=== PATIENT | female | born 1995 | race Caucasian/White ===

== ENCOUNTER 2018-04-19 22:24 | Emergency (ER) | payer BC ==
--- NOTE | 2018-04-19 23:22 | EDM.PDOC ---
ED HPI GENERAL MEDICAL PROBLEM - General Chief Complaint: Laceration Stated Complaint: LACERATION RING FINGER/LT HAND Time Seen by Provider: 04/19/18 22:27 - History of Present Illness INITIAL COMMENTS - FREE TEXT/NARRATIVE: HISTORY AND PHYSICAL: History of present illness: 22-year-old female presenting emergency department with chief complaint of trauma to her left ring finger. Patient states that the wind blew a door onto her left ring finger causing a laceration to the tip. She felt immediate pain and there was bleeding. She denies any decreased sensation, range of motion, or strength. No other injuries were noted. No loss of consciousness. Initial exam shows neurovascular intact. There is a Review of systems: As per history of present illness and below otherwise all systems reviewed and negative. Past medical history: As per history of present illness and as reviewed below otherwise noncontributory. Surgical history: As per history of present illness and as reviewed below otherwise noncontributory. Social history: No reported history of drug or alcohol abuse. Family history: As per history of present illness and as reviewed below otherwise noncontributory. Physical exam: HEENT: Atraumatic, normocephalic, pupils reactive, negative for conjunctival pallor or scleral icterus, mucous membranes moist, throat clear, neck supple, nontender, trachea midline. Lungs: Clear to auscultation, breath sounds equal bilaterally, chest nontender. Heart: S1S2, regular, negative for clicks, rubs, or JVD. Abdomen: Soft, nondistended, nontender. Negative for masses or hepatosplenomegaly. Negative for costovertebral tenderness. Pelvis: Stable nontender. Genitourinary: Deferred. Rectal: Deferred. Extremities: Atraumatic, negative for cords or calf pain. Neurovascular unremarkable. Neuro: Awake, alert, oriented. Cranial nerves II through XII unremarkable. Cerebellum unremarkable. Motor and sensory unremarkable throughout. Exam nonfocal. Diagnostics: [] Therapeutics: 1% lidocaine 5 mL, 2 Ethilon 5-0 suture Impression: Laceration left ring finger Plan: X-ray revealed no significant bony abnormalities or fractures. Using 5 mL of 1% lidocaine digital block was achieved on the left ring finger. Under normal sterile procedure to Ethilon 50 sutures were placed one vertical mattress and one regular interrupted. Patient was discharged in good condition with instruction to follow-up in 7 days for suture removal. She should watch for signs of infection including but not limited to increased pain, swelling, redness, and purulent drainage. She should return to emergency department if she has any new or worsening symptoms. I did give the patient a prescription for Bactrim secondary to dirty wound. Patient did have a recent tetanus so did not need updating. Definitive disposition and diagnosis as appropriate pending reevaluation and review of above. left ring finger Pain Score (Numeric/FACES): 8 - Related Data Allergies Allergy/AdvReac Type Severity Reaction Status Date / Time No Known Allergies Allergy Verified 04/19/18 23:08 Home Meds: Home Meds . 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 Hematologic History: Reports: None Oncologic (Cancer) History: Reports: None Dermatologic History: Reports: None - Infectious Disease History Infectious Disease History: Reports: None - Past Surgical History GI Surgical History: Reports: Other (See Below) Other GI Surgeries/Procedures: spleen removed per patient Female Surgical History: Reports: None Social & Family History - Family History Family Medical History: Noncontributory - Tobacco Use Smoking Status *Q: Never Smoker - Recreational Drug Use Recreational Drug Use: No ED ROS GENERAL - Review of Systems Review Of Systems: ROS reveals no pertinent complaints other than HPI. ED EXAM, SKIN/RASH Exam: See Below Course - Vital Signs Last Recorded V/S: Last Vital Signs Temp 97.4 F 04/19/18 23:09 Pulse 86 04/19/18 23:09 Resp 14 04/19/18 23:09 BP 96/56 L 04/19/18 23:09 Pulse Ox 98 04/19/18 23:09 - Orders/Labs/Meds Orders: Active Orders 24 hr Category Date Time Status Fingers Fourth Digit Lt F3 [CR] Stat Exams 04/19/18 23:20 Taken Meds: Medications Discontinued Medications Generic Name Dose Route Start Last Admin Trade Name Freq PRN Reason Stop Dose Admin Lidocaine HCl Confirm 04/20/18 00:44 Xylocaine-Mpf 1% Administered 04/20/18 00:45 Dose 5 mls @ as directed .ROUTE .STK-MED ONE Ketorolac Tromethamine 60 mg 04/20/18 00:13 04/20/18 00:20 Toradol IM 04/20/18 00:14 60 mg ONETIME ONE Administration Lidocaine HCl 5 ml 04/20/18 00:12 04/20/18 00:20 Xylocaine-Mpf 1% INJECT 04/20/18 00:13 5 ml ONETIME ONE Administration Departure - Departure Time of Disposition: 00:53 Disposition: Home, Self-Care 01 Condition: Good Clinical Impression: Laceration of finger of left hand Qualifiers: Encounter type: initial encounter Finger: ring finger Damage to nail status: without damage Foreign body presence: without foreign body Qualified Code(s): S61.215A - Laceration without foreign body of left ring finger without damage to nail, initial encounter - Discharge Information Referrals: PCP,None [Primary Care Provider] - Forms: ED Department Discharge Additional Instructions: My general discharge The following information is given to patients seen in the emergency department who are being discharged to home. This information is to outline your options for follow-up care. We provide all patients seen in our emergency department with a follow-up referral. The need for follow-up, as well as the timing and circumstances, are variable depending upon the specifics of your emergency department visit. If you don't have a primary care physician on staff, we will provide you with a referral. We always advise you to contact your personal physician following an emergency department visit to inform them of the circumstance of the visit and for follow-up with them and/or the need for any referrals to a consulting specialist. The emergency department will also refer you to a specialist when appropriate. This referral assures that you have the opportunity for follow-up care with a specialist. All of these measure are taken in an effort to provide you with optimal care, which includes your follow-up. Under all circumstances we always encourage you to contact your private physician who remains a resource for coordinating your care. When calling for follow-up care, please make the office aware that this follow-up is from your recent emergency room visit. If for any reason you are refused follow-up, please contact the [facility] Emergency Department at and asked to speak to the emergency department charge nurse. [facility] [address] [place] [id number] May use Tylenol and Motrin for pain and inflammation Take antibiotics as prescribed. Return to emergency department if any new or worsening symptoms Return for suture removal in 7 days. - My Orders Last 24 Hours: My Active Orders 04/19/18 23:20 Fingers Fourth Digit Lt F3 [CR] Stat - Assessment/Plan Last 24 Hours: My Active Orders 04/19/18 23:20 Fingers Fourth Digit Lt F3 [CR] Stat
[2018-04-20] MEDS ORDERED: Ketorolac 60 MG/2 ML SDV IM ONE (00:13)
[2018-04-20] MEDS ORDERED: Bacitracin Oint 1 GM U/D Packet TOP ONE (00:51)
--- NOTE | 2018-04-20 11:21 | CR ---
EXAM DATE: 04/19/18 PATIENT'S AGE: 22 Patient: DOM WINTER Facility: [place], [place] Site . Site : 1995 Study: XRay Extremity Left 4th digit [id number]/4/2018 11:42:14 PM Ordering Physician: Soy Morales Final Report: INDICATION: Crush injury TECHNIQUE: Three views 4th digit left hand COMPARISON: None FINDINGS: Bones: Alignment is normal. No fractures or bone lesions. Joint spaces: Unremarkable. Soft tissues: Unremarkable. IMPRESSION: Negative. Dictated by Ander Hewitt MD @ 04/20/2018 12:06:14 AM Dictated by: Ander Hewitt MD @ 04/20/2018 00:06:55 (Electronic Signature) Report Signed by Proxy. [facility]
== END 2018-04-20 01:05 | disposition home or self-care (01) ==
LOC: MW.ED 22:24
DX: S61.215A Laceration without foreign body of left ring finger without damage to nail, initial encounter (principal); W22.8XXA Striking against or struck by other objects, initial encounter
CPT/HCPCS: 12001; 73140; 96372; 99283; J1885

== ENCOUNTER 2018-04-26 15:09 | Emergency (ER) | payer BC | END 2018-04-26 15:38 | disposition left against medical advice (07) | LOC: MW.ED 15:09 | DX: Z53.21 Procedure and treatment not carried out due to patient leaving prior to being seen by health care provider (principal) ==

== ENCOUNTER 2025-07-29 21:34 | Emergency (ER) | payer OTHER | END 2025-07-29 22:00 | LOC: MW.ED 21:34 | DX: Z02.89 Encounter for other administrative examinations (principal); Z76.0 Encounter for issue of repeat prescription; J45.909 Unspecified asthma, uncomplicated | CPT/HCPCS: 99283 ==

== ENCOUNTER 2025-09-07 22:41 | Emergency (ER) | payer SELFPAY | END 2025-09-07 23:14 | LOC: MW.ED 22:41 | DX: Z02.89 Encounter for other administrative examinations (principal); J45.909 Unspecified asthma, uncomplicated; F17.200 Nicotine dependence, unspecified, uncomplicated; Z75.3 Unavailability and inaccessibility of health-care facilities; Z90.81 Acquired absence of spleen; Z76.0 Encounter for issue of repeat prescription | CPT/HCPCS: 99283 ==